=== PATIENT | female | born 1990 | race Caucasian/White ===

== ENCOUNTER 2017-02-03 21:29 | Emergency (ER) | payer MEDICAID, OTHER ==
[~2017-02-03] VITALS: Ht 167.6 cm; Wt 103.0 kg
[~2017-02-03 21:29] MED LIST: ACHD5005 PO; CEPH500C PO; CLIN-62 PO; CLIN300C3 PO; CPR500T PO; HYDR1CAP2 PO; HYDR1TAB PO; IBP600T1 PO; LORA1TAB PO; METR500T PO; MTR250T PO; NITR-65 PO; PHEN200T27 PO; PREN1TAB14 PO; TERC20CR4 VG; TRM50T PO
[2017-02-03] MEDS ORDERED: PHEN15CA67 PO (22:02)
[2017-02-03] MEDS ORDERED: OMEP20CA12 (22:02)
--- NOTE | 2017-02-03 22:13 | ED Lower Extremity ---
General Chief Complaint: Lower Extremity Stated Complaint: R FOOT INJ Nursing Triage Note: PT REPORTS SHE WAS RUNNING TODAY AROUND 1730 AND MOVED HER R FOOT WRONG. PT STATES PAIN IN R FOOT HAS GOTTEN PROGRESSIVELY WORSE THROUGHOUT THE NIGHT. Nursing Sepsis Screen: No Definite Risk Source: patient Exam Limitations: no limitations History of Present Illness Time seen by provider: 22:11 Initial Comments To ER with pain to the top and bottom of her right foot after she was running up a hill at [facility] and stepped on an exposed tree root And stepped on a tree root. Onset: just prior to arrival Severity: moderate Pain/Injury Location: right foot Method of Injury: fell Modifying Factors: Improves With Movement Allergies and Home Medications Allergies Coded Allergies: Penicillins (Unverified Allergy, 08/12/10) Home Medications Omeprazole 20 Mg Capsule., (Reported) Phentermine HCl 15 Mg Capsule, 15 MG PO DAILY, (Reported) Constitutional: see HPI, No chills EENTM: see HPI Respiratory: no symptoms reported Cardiovascular: no symptoms reported Genitourinary: no symptoms reported Musculoskeletal: see HPI Skin: no symptoms reported Psychiatric/Neurological: No Symptoms Reported Past Zogaspk-Zqpkzh-Uyycun Hx Patient Social History Alcohol Use: Occasionally Uses Recreational Drug Use: No Smoking Status: Never a Smoker Recent Foreign Travel: No Contact w/Someone Who Travel: No Recent Infectious Disease Expo: No Physical Abuse: No Sexual Abuse: No Mistreated: No Fear: No Immunizations Up To Date Tetanus Booster (TDap): Unknown Date of Pneumonia Vaccine: Mar 14, 2013 Date of Influenza Vaccine: Mar 14, 2013 Surgeries History of Surgeries: Yes (VAGINAL SX) Respiratory History of Respiratory Disorde: Yes Respiratory Disorders: Asthma Cardiovascular History of Cardiac Disorders: No Neurological History of Neurological Disord: No Reproductive System Hx Reproductive Disorders: Yes Female Reproductive Disorders: Ovarian Cyst, Polycystic Ovarian Dis Genitourinary History of Genitourinary Disor: No Gastrointestinal History of Gastrointestinal Di: No Musculoskeletal History of Musculoskeletal Dis: No Endocrine History of Endocrine Disorders: No HEENT History of HEENT Disorders: No Cancer History of Cancer: No Psychosocial History of Psychiatric Problem: No Behavioral Health Disorders: Anxiety Suicide Risk Score: 0 Integumentary History of Skin or Integumenta: No Blood Transfusions History of Blood Disorders: No Family Medical History Significant Family History: No Pertinent Family Hx Physical Exam Vital Signs Vital Sign - Last 12Hours 02/03/17 21:54 Pulse 81 Resp 20 B/P (MAP) 132/91 Pulse Ox 98 O2 Delivery Room Air Capillary Refill : Less Than 3 Seconds General Appearance: WD/WN, no apparent distress HEENT: PERRL/EOMI, normal ENT inspection Neck: non-tender, full range of motion Respiratory: no respiratory distress, no accessory muscle use Gastrointestinal: normal bowel sounds, non tender, soft Hips: bilateral hip non-tender, bilateral hip normal inspection, bilateral hip normal range of motion Legs: bilateral leg non-tender, bilateral leg normal inspection, bilateral leg normal range of motion Knees: bilateral knee non-tender, bilateral knee normal inspection, bilateral knee normal range of motion Ankles: bilateral ankle non-tender, bilateral ankle normal inspection, bilateral ankle normal range of motion Feet: right foot pain, right foot soft tissue tenderness Neurologic/Psychiatric: alert, normal mood/affect, oriented x 3 Skin: normal color, warm/dry Progress/Results/Core Measures Results/Orders My Orders Orders - MAX CHE APRN Foot, Right, 3 View (02/03/17 22:10) Vital Signs/I&O Vital Sign - Last 12Hours 02/03/17 21:54 Pulse 81 Resp 20 B/P (MAP) 132/91 Pulse Ox 98 O2 Delivery Room Air Blood Pressure Mean: 105 Departure Impression Impression: Primary Impression: Foot sprain Disposition: 01 HOME, SELF-CARE Condition: Stable Departure-Patient Inst. Decision time for Depature: 22:23 Referrals: [facility] (PCP/Family) Primary Care Physician Patient Instructions: Sprain (DC) Add. Discharge Instructions: 1. Return to ER for any concern 2. Use crutches as needed when walking 3. Tylenol and Motrin as needed for pain All discharge instructions reviewed with patient and/or family. Voiced understanding. Work/School Note: Work Release Form Date Seen in the Emergency Department: Feb 03, 2017 Return to Work: Feb 05, 2017 Other Restrictions Listed Below: Crutches when walking MAX CHE APRN Feb 03, 2017 22:13
[2017-02-03 22:55] VITALS: BP 123/75
--- NOTE | 2017-02-04 05:34 | Diagnostic Imaging Report ---
INDICATION: Pain status post injury COMPARISON: None. FINDINGS: 3 views of the right foot demonstrate no acute fracture or dislocation. There are no focal osseous lesions. There is no soft tissue swelling. Joint spaces are well maintained. No radiopaque foreign bodies are seen. IMPRESSION: No acute fractures or dislocations of the right foot. Dictated by: Dictated on workstation # [id number]
== END 2017-02-03 22:54 | disposition home or self-care (01) ==
LOC: EDUNIT# 21:29 → ER 21:32
DX: S93.601A Unspecified sprain of right foot, initial encounter (principal); F41.9 Anxiety disorder, unspecified; J45.909 Unspecified asthma, uncomplicated; Z87.448 Personal history of other diseases of urinary system
CPT/HCPCS: 73630; 99283

== ENCOUNTER 2018-04-26 17:43 | Emergency (ER) | payer MEDICAID ==
[~2018-04-26] VITALS: Ht 162.6 cm; Wt 95.3 kg
[~2018-04-26 17:43] MED LIST changes: +OMEP20CA12; +PHEN15CA PO
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
--- OUTSIDE RECORDS SUMMARY | 2018-04-26 17:51 | XMS REPORT ---
Author Author MICHI CAROLINA Organization [facility] Address [address] [place] [address] Care Team Providers Care House Steward/Stewardess Name Role Phone CAITY MICHI Unavailable PROBLEMS Type Condition ICD9-CM Code [id number] Code Onset Dates Condition Status SNOMED Code Assessment Gastroenteritis K52.9 Jan, Active 56701464 Problem Headache 784.0 Active 83997669 Problem Obesity, unspecified 278.00 Active 311401160 Problem Routine health maintenance Z00.00 Active 415597171 Problem Headache R51 Active 77339720 Problem Exercise-induced asthma J45.990 Active 45994084 Problem Other abnormal glucose 790.29 Active 653837171 Problem Tobacco abuse Z72.0 Active 30668823 Problem Tobacco abuse counseling Z71.6 Active 619917189 ALLERGIES Substance Reaction Event Type Date Status Penicillin V Potassium Unknown Drug Allergy Jan, Active SOCIAL HISTORY No smoking Hx information available PLAN OF CARE VITAL SIGNS Height 65 in 2016-02-06 Weight 231.0 lbs 2016-02-06 Heart Rate 90 bpm 2016-02-06 Respiratory Rate 16 2016-02-06 BMI 38.44 kg/m2 2016-02-06 Blood pressure systolic 126 mmHg 2016-02-06 Blood pressure diastolic 62 mmHg 2016-02-06 MEDICATIONS Medication Instructions Dosage Frequency Start Date End Date Duration Status Zofran ODT 4 MG Orally every 8 hours, PRN 1 tablet on the tongue and allow to dissolve Jan, 03 days Active RESULTS No Results PROCEDURES Procedure Date Ordered Related Diagnosis Body Site Office Visit, Est Pt., Level 3 Feb 06, 2016 IMMUNIZATIONS No Known Immunizations
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
--- OUTSIDE RECORDS SUMMARY | 2018-04-26 17:51 | XMS REPORT ---
Author Author YEVGENIY HDEZ Organization [employer] Address Unknown Phone Unavailable Care Team Providers Care Student Teacher Name Role Phone YEVGENIY HDEZ CP Unavailable Allergies, Adverse Reactions, Alerts Substance Reaction Event Type Penicillin V Potassium Info Not Available Drug Allergy Problems Problem Type Condition Code Onset Dates Condition Status Problem Obesity, unspecified 278.00 Active Problem Other abnormal glucose 790.29 Active Problem Headache 784.0 Active Assessment Asthma with acute exacerbation, unspecified asthma severity J45.901 Active Assessment Allergic rhinitis, unspecified allergic rhinitis trigger, unspecified rhinitis seasonality J30.9 Active Problem Asthma with acute exacerbation, unspecified asthma severity J45.901 Active Problem Routine health maintenance Z00.00 Active Problem Allergic rhinitis, unspecified allergic rhinitis trigger, unspecified rhinitis seasonality J30.9 Active Problem Tobacco abuse counseling Z71.6 Active Problem Exercise-induced asthma J45.990 Active Problem Headache R51 Active Problem Tobacco abuse Z72.0 Active Medications Medication Code System Code Instructions Start Date End Date Status Dosage PredniSONE [facility] [address]-51 20 MG Orally Once a day Mar 03, 2016 Mar 08, 2016 2 tablet Zofran ODT [facility] [address]-56 4 MG Orally every 8 hours, PRN Feb 06, 2016 1 tablet on the tongue and allow to dissolve Zyrtec Allergy [facility] [address]-20 10 MG Orally Once a day Mar 03, 2016 Apr 02, 2016 1 tablet Fluticasone Propionate [facility] [address]-42 50 MCG/ACT Nasally Once a day Mar 03, 2016 1-2 spray in each nostril Procedures Procedure Coding System Code Date Office Visit, Est Pt., Level 3 CPT-4 50654 Mar 03, 2016 Vital Signs Date/Time: Mar 03, 2016 Cardiac Monitoring Heart Rate 88 bpm Weight 230.8 lbs Height 65 in BMI 38.40 Index Blood Pressure Diastolic 72 mmHg Blood Pressure Systolic 126 mmHg Results No Known Results Summary Purpose [employer] Submission
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
--- NOTE | 2018-04-26 18:02 | ED General ---
General Chief Complaint: General Problems/Pain Stated Complaint: CANCER SORES IN MOUTH Nursing Triage Note: ARRIVED TO FT1 WITH COMPLAINTS OF CANKER SORES ON HER LIPS X2 DAYS. Nursing Sepsis Screen: No Definite Risk History of Present Illness Date Seen by Provider: Apr 26, 2018 Time Seen by Provider: 17:59 Allergies and Home Medications Allergies Coded Allergies: Penicillins (Unverified Allergy, 08/12/10) Home Medications No Active Prescriptions or Reported Meds Past Mjrktgs-Fmxwav-Hscagb Hx Patient Social History Recent Foreign Travel: No Contact w/Someone Who Travel: No Recent Infectious Disease Expo: No Recent Hopitalizations: Yes (4 YRS. AGO FOR PNUEMONIA) Immunizations Up To Date Tetanus Booster (TDap): Unknown Date of Pneumonia Vaccine: Mar 14, 2013 Date of Influenza Vaccine: Mar 14, 2013 Past Medical History Surgeries: Yes (VAGINAL SX) Respiratory: Yes Asthma Cardiac: No Neurological: No Reproductive Disorders: Yes Female Reproductive Disorders: Ovarian Cyst, Polycystic Ovarian Dis Genitourinary: No Gastrointestinal: No Musculoskeletal: No Endocrine: No HEENT: No Cancer: No Psychosocial: No Anxiety Integumentary: No Blood Disorders: No Family Medical History No Pertinent Family Hx Physical Exam Vital Signs Vital Signs - First Documented 04/26/18 17:52 Temp 95.8 Pulse 81 Resp 16 B/P (MAP) 117/94 (102) Pulse Ox 98 O2 Delivery Room Air Capillary Refill : Less Than 3 Seconds Height, Weight, BMI Height: 5'4.00" Weight: 210lbs. oz. 95.433830it; BMI Method:Stated Progress/Results/Core Measures Suspected Sepsis Recent Fever Within 48 Hours: No Infection Criteria Present: None New/Unexplained Altered Menta: No Sepsis Screen: No Definite Risk SIRS Temperature:95.8 Pulse: 81 Respiratory Rate: 16 Blood Pressure 117 /94 Mean: 102 Results/Orders Vital Signs/I&O 04/26/18 17:52 Temp 95.8 Pulse 81 Resp 16 B/P (MAP) 117/94 (102) Pulse Ox 98 O2 Delivery Room Air Capillary Refill : Less Than 3 Seconds Blood Pressure Mean: 102 Departure Impression Primary Impression: Canker sore Disposition: 01 HOME, SELF-CARE Condition: Stable/Unchanged Departure-Patient Inst. Decision time for Depature: 18:00 Referrals: [facility] (PCP/Family) Primary Care Physician Patient Instructions: Cold Sores (Oral Herpes) Add. Discharge Instructions: You may use [id number] canker sore relief. I believe the name brand is canker. Use as directed. Tylenol and ibuprofen as needed for pain relief. Follow -up with her primary care provider within 1 week for recheck. Return back to the emergency room for any worsening symptoms or concerns as needed. All discharge instructions reviewed with patient and/or family. Voiced understanding. Scripts No Active Prescriptions or Reported ANURAG Moralez Apr 26, 2018 18:02
[2018-04-26 18:18] VITALS: BP 117/94
== END 2018-04-26 18:18 | disposition home or self-care (01) ==
LOC: EDUNIT# 17:43 → ER 17:44
DX: K12.0 Recurrent oral aphthae (principal); J45.909 Unspecified asthma, uncomplicated; F41.9 Anxiety disorder, unspecified; Z87.448 Personal history of other diseases of urinary system; Z88.0 Allergy status to penicillin
CPT/HCPCS: 99281

== ENCOUNTER 2018-04-28 05:25 | Emergency (ER) | payer MEDICAID ==
[~2018-04-28] VITALS: Ht 162.6 cm; Wt 95.3 kg
--- OUTSIDE RECORDS SUMMARY | 2018-04-28 05:38 | XMS REPORT | Continuity of Care Document ---
Author Author Formerly [facility] Address Unknown Phone Unavailable Allergies Active Description Code Type Severity Reaction Onset Reported/Identified Relationship to Patient Clinical Status Yes Penicillins Drug Allergy 03/14/2009 Yes Penicillins Drug Allergy N/A N/A 03/14/2009 Yes Penicillins [id number] Drug Allergy Unknown N/A 08/12/2010 Medications There [...] A 256.4 POLYCYSTIC OVARIAN SYNDROME 05/24/2009 FRANCESCO ORSENBAUM APRNINA R 256.4 POLYCYSTIC OVARIAN SYNDROME 05/24/2009 FRANCESCO ROSENBAUM APRNINA R 256.4 POLYCYSTIC OVARIAN SYNDROME 02/06/2010 626.0 amenorrhea 02/06/2010 MITZI MEZA DO 626.0 amenorrhea 02/06/2010 626.0 amenorrhea 02/06/2010 NEHA STOLL APRN A 626.0 amenorrhea 02/06/2010 NEHA STOLL APRN A 626.0 amenorrhea 02/06/2010 ROBI SOCIAL MEDIA ANALYST, JODY R 626.0 amenorrhea 02/06/2010 ROBI SOCIAL MEDIA ANALYST, JODY R 626.0 amenorrhea 05/11/2010 616.10 VAGINITIS VULVOVAGINITIS UNSPECIFIED 05/11/2010 788.1 DYSURIA 05/11/2010 V69.2 HIGH-RISK SEXUAL BEHAVIOR 05/11/2010 V72.31 COSTUMED CHARACTER EXAM, ROUTINE 05/11/2010 V74.5 STD SCREEN 05/11/2010 MEZA DO MITZI K 616.10 VAGINITIS VULVOVAGINITIS UNSPECIFIED 05/11/2010 MEZA DO, MITZI K 788.1 DYSURIA 05/11/2010 MEZA DO, MITZI K V69.2 HIGH-RISK SEXUAL BEHAVIOR 05/11/2010 MEZA DO, MITZI K V72.31 COSTUMED CHARACTER EXAM, ROUTINE 05/11/2010 MEZA DO, MITZI K V74.5 STD SCREEN 05/11/2010 616.10 VAGINITIS VULVOVAGINITIS UNSPECIFIED 05/11/2010 788.1 DYSURIA 05/11/2010 V69.2 HIGH-RISK SEXUAL BEHAVIOR 05/11/2010 V72.31 COSTUMED CHARACTER EXAM, ROUTINE 05/11/2010 V74.5 STD SCREEN 05/11/2010 DODIE SOCIAL MEDIA ANALYST, NEHA A 616.10 VAGINITIS VULVOVAGINITIS UNSPECIFIED 05/11/2010 DODIE SOCIAL MEDIA ANALYST, NEHA A 788.1 DYSURIA 05/11/2010 DODIE SOCIAL MEDIA ANALYST, NEHA A V69.2 HIGH-RISK SEXUAL BEHAVIOR 05/11/2010 DODIE SOCIAL MEDIA ANALYST, NEHA A V72.31 COSTUMED CHARACTER EXAM, ROUTINE 05/11/2010 DODIE SOCIAL MEDIA ANALYST, NEHA A V74.5 STD SCREEN 05/11/2010 DODIE SOCIAL MEDIA ANALYST, NEHA A 616.10 VAGINITIS VULVOVAGINITIS UNSPECIFIED 05/11/2010 DODIE SOCIAL MEDIA ANALYST, NEHA A 788.1 DYSURIA 05/11/2010 DODIE SOCIAL MEDIA ANALYST, NEHA A V69.2 HIGH-RISK SEXUAL BEHAVIOR 05/11/2010 DODIE SOCIAL MEDIA ANALYST, NEHA A V72.31 COSTUMED CHARACTER EXAM, ROUTINE 05/11/2010 DODIE SOCIAL MEDIA ANALYST, NEHA A V74.5 STD SCREEN 05/11/2010 ROBI AGOSTON, JODY R 616.10 VAGINITIS VULVOVAGINITIS UNSPECIFIED 05/11/2010 ROBI STEWART JODY R 788.1 DYSURIA 05/11/2010 ROBI AGOSTON JODY R V69.2 HIGH-RISK SEXUAL BEHAVIOR 05/11/2010 ROBI AGOSTON, JODY R V72.31 COSTUMED CHARACTER EXAM, ROUTINE 05/11/2010 ROBI AGOSTON JODY R V74.5 STD SCREEN 05/11/2010 ROBI AGOSTON JODY R 616.10 VAGINITIS VULVOVAGINITIS UNSPECIFIED 05/11/2010 ROBI STEWART JODY R 788.1 DYSURIA 05/11/2010 ROBI STEWART, JODY R V69.2 HIGH-RISK SEXUAL BEHAVIOR 05/11/2010 ROBI STEWART JODY R V72.31 COSTUMED CHARACTER EXAM, ROUTINE 05/11/2010 FRANCESCO ROSENBAUM APRNINA R [...] CERVICAL CANCER SCREENING (PAP SMEAR) 02/19/2011 ROBI SOCIAL MEDIA ANALYST, JODY R V76.2 CERVICAL CANCER SCREENING (PAP [...] A V72.41 TEST NEGATIVE RESULT 06/02/2012 JODY ROSENBAUM APRN R V72.41 TEST NEGATIVE RESULT 06/02/2012 [...] INOCULATI 03/14/2013 KARYN SNYDER DO Ot V06.1 SSBIABPTIC-[id number], COMBINED [ 03/14/2013 KARYN SNYDER DO Ot V06.6 PROPHYLACTIC VACC AGNST STREPTOCOCCUS PN 03/14/2013 KARYN SNYDER DO Ot V27.0 DELIVER-SINGLE LIVEBORN 03/15/2013 MAX CHE APRN Ot 784.0 HEADACHE 06/05/2013 DORIE NOLAN MD Ot 521.00 UNSPEC DENTAL CARIES 06/05/2013 DORIE NOLAN MD Ot 525.9 DENTAL DISORDER NOS 01/17/2014 DODIE SOCIAL MEDIA ANALYST, NEHA A V25.9 CONTRACEPTION MANAGEMENT 01/17/2014 ROBI STEWART, JODY R V25.9 CONTRACEPTION MANAGEMENT 01/17/2014 ROBI STEWART, JODY R V25.9 CONTRACEPTION MANAGEMENT 06/23/2014 ROBI SOCIAL MEDIA ANALYST, JODY R 278.00 OBESITY 06/23/2014 ROBI AGOSTON, JODY R 784.0 HEADACHE 06/23/2014 ROBI AGOSTON, JODY R 278.00 OBESITY 06/23/2014 ROBI AGOSTON, JODY R 784.0 HEADACHE 07/07/2014 ROBI SOCIAL MEDIA ANALYST, JODY R 786.2 COUGH 07/07/2014 ROBI AGOSTON, JODY R 790.29 ABNORMAL GLUCOSE 07/07/2014 ROBI AGOSTON, JODY R V70.0 ROUTINE GENERAL MEDICAL EXAMINATION AT A HEALTH CARE FACILITY 07/07/2014 ROBI SOCIAL MEDIA ANALYST, JODY R 786.2 COUGH 07/07/2014 ROBI AGOSTON, [...] Procedures Code Description [place] [address] URINE TEST (IN- HOUSE) 06/02/2012 58447 URINE TEST (IN- HOUSE) 07/24/2012 96.49 OTHER INSTILLATION 03/11/2013 73.6 EPISIOTOMY 03/12/2013 08086 THERAPUTIC INJ SQ/IM 01/17/2014 J1050 DEPO PROVERA 01/17/2014 30310 TEST, URINE (IN- HOUSE) 01/17/2014 96549 ROUTINE VENIPUNCTURE 07/08/2014 52713 CBC 07/08/2014 9960831 GFR CALC (RESULT ONLY) 07/08/2014 18971 CMP 07/08/2014 14370 LIPID PANEL 07/08/2014 05765 TSH 07/08/2014 79022 INSULIN LEVEL 07/08/2014 16074 MYCOPLASMA ANTIBODY 07/11/2014 Results Test Result Range [...] 10:36 Hemoglobin A1c 5.2 % 4.8-5.6 Thyroid [place] Profile - 10/18/16 10:36 TSH 1.090 uIU/mL [...] Status Pt. Type Provider Facility Loc./Unit Complaint [id number] 07/08/2014 13:25:00 07/08/2014 23:59:59 CLS Outpatient JODY ROSENBAUM APRN [id number] 07/07/2014 13:54:00 07/07/2014 23:59:59 CLS Outpatient JODY ROSENBAUM APRN [id number] 01/17/2014 14:57:00 01/17/2014 23:59:59 CLS Outpatient NEHA STOLL APRN [id number] 08/16/2013 16:00:00 08/16/2013 23:59:59 CLS Outpatient NEHA STOLL APRN [id number] 07/24/2012 09:21:00 07/24/2012 23:59:59 CLS Outpatient [id number] 06/08/2012 09:23:00 06/08/2012 23:59:59 CLS Outpatient MITZI MEZA DO [id number] 06/02/2012 09:31:00 06/02/2012 23:59:59 CLS Outpatient [id number] 10/21/2016 10:06:00 Document Registration [id number] 10/22/2016 15:09:00 Document Registration [id number] 02/03/2017 21:32:00 02/03/2017 22:54:00 DIS Emergency MAX CHE APRN Via [facility] ER R FOOT INJ [id number] 09/22/2014 18:39:00 09/22/2014 20:54:00 DIS Emergency MICHELLE SMITH DO Via [facility] ER EAR PAIN [id number] 06/05/2013 02:38:00 06/05/2013 03:16:00 DIS Emergency DORIE NOLAN MD [facility] ER DENTAL PAIN [id number] 03/15/2013 17:05:00 03/15/2013 18:42:00 DIS Emergency MAX CHE SOCIAL MEDIA ANALYST Via [facility] ER HEADACHE [id number] 03/11/2013 19:50:00 03/14/2013 14:30:00 DIS Inpatient KARYN SNYDER DO Via [facility] INDUCTION [id number] 03/08/2013 05:48:00 03/08/2013 06:47:00 DIS Outpatient KARYN SNYDER DO Via [facility] ABD PAIN [id number] 02/25/2013 00:30:00 02/25/2013 03:45:00 DIS Outpatient KARYN SNYDER DO [facility] CONTRACTIONS [id number] 02/08/2013 22:53:00 02/09/2013 00:35:00 DIS Outpatient KARYN SNYDER DO Via [facility] CRAMPING [id number] 01/06/2013 04:48:00 01/06/2013 06:30:00 DIS Outpatient KARYN SNYDER DO Via [facility] ABD PAIN [id number] 11/29/2012 01:32:00 11/29/2012 02:10:00 DIS Outpatient MATEUS BASS MD Via [facility] SOA, ABD PAIN [id number] 10/31/2012 20:53:00 10/31/2012 21:54:00 DIS Emergency DORIE NOLAN MD Via [facility] ER TOOTHACHE [id number] 10/26/2012 00:05:00 10/26/2012 00:41:00 DIS Emergency NURY KENNEDY, MARIN Nick [facility] ER DENTAL PAIN [id number] 08/04/2012 00:46:00 Document Registration [id number] 10/16/2010 08:27:00 Document Registration [id number] 08/27/2010 21:52:00 Document Registration [id number] 08/16/2010 18:46:00 Document Registration [id number] 08/14/2010 09:57:00 Document Registration [id number] 08/12/2010 15:14:00 Document Registration [id number] 10/21/2016 08:05:00 Document Registration [id number] 01/18/2017 09:09:00 Document Registration [id number] 03/20/2018 15:00:00 03/20/2018 23:59:59 [facility] Outpatient TESFAYE [facility] [id number] 12/09/2017 11:20:00 Document Registration [id number] 10/30/2017 11:00:00 Document Registration [id number] 06/12/2017 16:00:00 Document Registration [id number] 10/18/2016 10:00:00 Document Registration
[2018-04-28] MEDS ORDERED: CLIN300C11 PO (06:28)
[2018-04-28] MEDS ORDERED: ACYC400T PO (06:28)
--- NOTE | 2018-04-28 06:28 | ED EENT ---
History of Present Illness General Chief Complaint: Oral/Throat Problems Stated Complaint: LIPS SWOLLEN FOR 4 DAYS,SORE THROAT,NAUSEA,ARNETT Source: patient, old records Exam Limitations: no limitations History of Present Illness Date Seen by Provider: Apr 28, 2018 Time Seen by Provider: 06:08 Initial Comments This 27-year-old woman presents to the emergency room for a repeat visit regarding lip swelling and canker sores. She has been using oeqt-hfy-btoucxm products such as Abreva without significant relief. In fact, the swelling has worsened. Pain seemed to peak yesterday. She has multiple aphthous ulcerations on the mucosal surface of the lower lip. The lower lip is swollen. There is honey crusting on the exterior surface of the lip. Patient has also had some nausea. She is afebrile. Allergies and Home Medications Allergies Coded Allergies: Penicillins (Unverified Allergy, 08/12/10) Home Medications Acyclovir 400 Mg Tablet, 400 MG PO TID Prescribed by: MARIN LIM on 04/28/18627 Clindamycin HCl 300 Mg Capsule, 300 MG PO QID Prescribed by: MARIN LIM on 04/28/18627 Patient Home Medication List Home Medication List Reviewed: Yes Review of Systems Review of Systems Constitutional: no symptoms reported Eyes: No Symptoms Reported Ears: No Symptoms Reported Nose: no symptoms reported Mouth: see HPI Throat: no symptoms reported Respiratory: no symptoms reported Cardiovascular: no symptoms reported : No Musculoskeletal: no symptoms reported Skin: see HPI Neurological: No Symptoms Reported Immunological/Allergic: no symptoms reported Past Pvadxzt-Nvpolk-[place]ucuk Hx Past Med/Social Hx: Reviewed Nursing Past Med/Soc Hx Patient Social History Recent Foreign Travel: No Contact w/Someone Who Travel: No Recent Hopitalizations: Yes (4 YRS. AGO FOR PNUEMONIA) Immunizations Up To Date Tetanus Booster (TDap): Unknown Date of Pneumonia Vaccine: Mar 14, 2013 Date of Influenza Vaccine: Mar 14, 2013 Past Medical History Surgeries: Yes (VAGINAL SX) Respiratory: Yes Asthma Cardiac: No Neurological: No Reproductive Disorders: Yes Female Reproductive Disorders: Ovarian Cyst, Polycystic Ovarian Dis Genitourinary: No Gastrointestinal: No Musculoskeletal: No Endocrine: No HEENT: No Cancer: No Psychosocial: No Anxiety Integumentary: No Blood Disorders: No Family Medical History No Pertinent Family Hx Physical Exam Vital Signs Vital Signs - First Documented 04/28/18 04/28/18 06:08 07:04 Temp 97.8 Pulse 97 Resp 17 B/P (MAP) 130/88 (102) Pulse Ox 100 Height, Weight, BMI Height: 5'4.00" Weight: 210lbs. oz. 95.745193fq; BMI Method:Stated General Appearance: WD/WN, no apparent distress Eyes: bilateral eye normal inspection Ears: bilateral ear auricle normal, bilateral ear canal normal, bilateral ear TM normal (scarring) Nose: normal inspection Mouth/Throat: other (swelling of the lower lip with numerous aphthous ulcers on the mucosal surface. Honey crusting on the exterior surface.) Neck: normal inspection Cardiovascular: regular rate, rhythm, no edema, no murmur Respiratory: lungs clear, normal breath sounds, no respiratory distress Neurologic/Psychiatric: rug designer II-XII nml as tested, no motor/sensory deficits, alert, normal mood/affect, oriented x 3 Skin: warm/dry, other (see above) Progress/Results/Core Measures Results/Orders My Orders Orders - MARIN ARRINGTON MD Ondansetron Oral Dissolve Tab (Zofran (04/28/18 06:30) Clindamycin Capsule (Cleocin Capsule) (04/28/18 06:30) Acyclovir Capsule/Tablet (Zovirax Caps (04/28/18 06:30) Medications Given in ED Current Medications Medications Dose Ordered Sig/Elmo Route Start Time Stop Time Status Last Admin Dose Admin Acyclovir 400 mg ONCE ONCE PO 04/28/18 06:30 04/28/18 06:32 DC 04/28/18 06:45 400 MG Clindamycin HCl 300 mg ONCE ONCE PO 04/28/18 06:30 04/28/18 06:32 DC 04/28/18 06:45 300 MG Ondansetron HCl 4 mg ONCE ONCE PO 04/28/18 06:30 04/28/18 06:32 DC 04/28/18 06:45 4 MG Vital Signs/I&O 04/28/18 04/28/18 06:08 07:04 Temp 97.8 97.8 Pulse 97 97 Resp 17 17 B/P (MAP) 130/88 (102) 130/88 (102) Pulse Ox 100 Progress Progress Note : Progress Note Patient is 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 The honey crusting may be from a secondary impetigo. She will be treated with acyclovir and Keflex. The first doses of the medications were given in the ER as pharmacies were not yet open. Departure Impression Primary Impression: Herpes stomatitis Additional Impression: Impetigo Disposition: HOME, SELF-CARE Condition: Stable Departure-Patient Inst. Decision time for Depature: 06:23 Referrals: [facility]/ (PCP/Family) Primary Care Physician Patient Instructions: Cold Sores (Oral Herpes) Add. Discharge Instructions: Use your medications as prescribed. Your symptoms should gradually improve over the next several days. Contact your primary care provider with any other problems or concerns. You may return to emergency room if you have significant worsening in your condition despite treatment. All discharge instructions reviewed with patient and/or family. Voiced understanding. Scripts Clindamycin HCl (Clindamycin HCl) 300 Mg Capsule 300 MG PO QID, #20 CAP Prov: MARIN ARRINGTON MD 04/28/18 Acyclovir (Acyclovir) 400 Mg Tablet 400 MG PO TID, #15 TAB 1 Refill Prov: MARIN ARRINGTON MD 04/28/18 Copy Copies To 1: MITZI MEZA JOSHUA T MD Apr 28, 2018 06:28
[2018-04-28] MEDS ORDERED: ACYCLOVIR 400 MG TABLET (ZOVIRAX) PO ONE (06:30)
[2018-04-28] MEDS ORDERED: ONDANSETRON 4 MG (ZOFRAN) ORAL DISSOLVE TAB PO ONE (06:30)
[2018-04-28] MEDS ORDERED: CLINDAMYCIN 150 MG (CLEOCIN) CAP PO ONE (06:30)
[2018-04-28 07:04] VITALS: BP 130/88
== END 2018-04-28 07:06 | disposition home or self-care (01) ==
LOC: EDUNIT# 05:25 → ER 05:27
DX: B00.2 Herpesviral gingivostomatitis and pharyngotonsillitis (principal); L01.00 Impetigo, unspecified; J45.909 Unspecified asthma, uncomplicated; F41.9 Anxiety disorder, unspecified; Z87.01 Personal history of pneumonia (recurrent); Z87.448 Personal history of other diseases of urinary system; Z88.0 Allergy status to penicillin
CPT/HCPCS: 99283

== ENCOUNTER 2022-06-03 15:29 | Emergency (ER) | payer MEDICAID ==
[~2022-06-03] VITALS: Ht 162 cm; Wt 103.4 kg
[~2022-06-03 15:29] MED LIST changes: +ACYC400T21 PO; +CLIN-144 PO; -OMEP20CA12; +OMEP20CA18; -PHEN15CA PO; +PHEN15CA6 PO
[2022-06-03 16:30] LABS: BASOPHILS # (AUTO) 0.1 10^3/uL (0.0-0.1); BASOPHILS % (AUTO) 1 % (0-10); EOSINOPHILS # (AUTO) 0.1 10^3/uL (0.0-0.3); EOSINOPHILS % (AUTO) 1 % (0-10); HEMATOCRIT 42 % (35-52); HEMOGLOBIN 14.3 g/dL (11.5-16.0); LYMPHOCYTES # (AUTO) 2.6 10^3/uL (1.0-4.0); LYMPHOCYTES % (AUTO) 31 % (12-44); MEAN CORPUSCULAR HEMOGLOBIN 29 pg (25-34); MEAN CORPUSCULAR HGB CONC 34 g/dL (32-36); MEAN CORPUSCULAR VOLUME 86 fL (80-99); MEAN PLATELET VOLUME 10.5 fL (9.0-12.2); MONOCYTES # (AUTO) 0.6 10^3/uL (0.0-1.0); MONOCYTES % (AUTO) 7 % (0-12); NEUTROPHILS % (AUTO) 59 % (42-75); PLATELET COUNT 255 10^3/uL (130-400); WHITE BLOOD COUNT 8.4 10^3/uL (4.3-11.0)
[2022-06-03 17:00] LABS: ALBUMIN 4.3 GM/DL (3.2-4.5); BILIRUBIN,TOTAL 0.5 MG/DL (0.1-1.0); CALCIUM 9.7 MG/DL (8.5-10.1); CREATININE SERUM 0.82 MG/DL (0.60-1.30); POTASSIUM 4.1 MMOL/L (3.6-5.0); TOTAL PROTEIN 7.6 GM/DL (6.4-8.2)
[2022-06-03] MEDS ORDERED: KETOROLAC 15 MG/ML VIAL IM ONE (17:15)
[2022-06-03] MEDS ORDERED: KETO10TA PO (17:20)
--- NOTE | 2022-06-03 17:20 | ED General ---
General Chief Complaint: Chest Wall Stated Complaint: LT ARM PAIN,LT SIDE RIBCAGE PAIN Nursing Triage Note: PT AMBULATORY TO ER. PT C/O L RIB PAIN AND L SHOULDER/ARM PAIN ONSET LAST NIGHT, DENIES INJURY. REPORTS PAIN IN RIBS IS WORSE WHEN LAYING FLAT OR TAKING A DEEP BREATH. PT DENIES ANY PRECIPITATING FACTORS. PT DENIES NUMBNESS TINGING. Source of Information: Patient Exam Limitations: No Limitations History of Present Illness Date Seen by Provider: Jun 03, 2022 Time Seen by Provider: 16:00 Initial Comments History obtained from patient. Patient is a 30-year-old female who presents to the emergency department with left rib and left shoulder/arm pain that began last night. Patient denies any injury. She states the pain is mostly in her left arm although she does have some left lateral rib pain when she is lying flat or taking a deep breath. Denies any numbness, tingling, weakness in the left arm. Denies any history of heart or lung problems. Denies any presyncopal symptoms. Denies any diaphoresis at rest. Denies any exertional worsening of the pain. Denies any neck pain. Allergies and Home Medications Allergies Coded Allergies: Penicillins (Unverified Allergy, Unknown, 06/03/22) Patient Home Medication List Home Medication List Reviewed: Yes Acyclovir (Acyclovir) 400 Mg Tablet, 400 MG PO TID Prescribed by: MARIN LIM on 04/28/18627 Clindamycin HCl (Clindamycin HCl) 300 Mg Capsule, 300 MG PO QID Prescribed by: MARIN LIM on 04/28/18627 Ketorolac Tromethamine (Ketorolac Tromethamine) 10 Mg Tablet, 10 MG PO Q6H PRN for PAIN-BREAKTHROUGH Prescribed by: Rita Foster on 06/03/22 1720 Review of Systems Review of Systems Constitutional: no symptoms reported EENTM: no symptoms reported Respiratory: no symptoms reported Cardiovascular: see HPI, chest pain Gastrointestinal: no symptoms reported Genitourinary: no symptoms reported Musculoskeletal: see HPI Skin: no symptoms reported Psychiatric/Neurological: No Symptoms Reported Past Xemktey-Juojhc-Fugdlh Hx Patient Social History Tobacco Use?: No Use of E-Cig and/or Vaping dev: No Substance use?: No Alcohol Use?: No Pt feels they are or have been: No Immunizations Up To Date Tetanus Booster (TDap): Unknown First/Initial COVID19 Vaccinat: DENIES Past Medical History Surgeries: Yes (VAGINAL SX) Respiratory: Yes Asthma Cardiac: No Neurological: No Last Menstrual Period: May 09, 2022 Reproductive Disorders: Yes Female Reproductive Disorders: Ovarian Cyst, Polycystic Ovarian Dis Genitourinary: No Gastrointestinal: No Musculoskeletal: No Endocrine: No HEENT: No Cancer: No Psychosocial: No Anxiety Integumentary: No Blood Disorders: No Family Medical History No Pertinent Family Hx Physical Exam Vital Signs Vital Signs - First Documented 06/03/22 15:38 Temp 36.8 Pulse 84 Resp 18 B/P (MAP) 129/94 (106) Pulse Ox 97 O2 Delivery Room Air Capillary Refill : Height, Weight, BMI Height: 5'4.00" Weight: 210lbs. oz. 95.416361ru; 39.00 BMI Method:Stated General Appearance: No Apparent Distress, WD/WN HEENT: PERRL/EOMI, TMs Normal, Normal ENT Inspection, Pharynx Normal Neck: Full Range of Motion, Normal Inspection, Non Tender, Supple Respiratory: Chest Non Tender, Lungs Clear, Normal Breath Sounds, No Accessory Muscle Use, No Respiratory Distress Cardiovascular: Regular Rate, Rhythm, Normal Peripheral Pulses Gastrointestinal: Soft Neurologic/Psychiatric: Alert, Oriented x3, No Motor/Sensory Deficits, Normal Mood/Affect Progress/Results/Core Measures Suspected Sepsis SIRS Temperature: Pulse: 84 Respiratory Rate: 18 Laboratory Tests 06/03/22 16:18: White Blood Count 8.4 Blood Pressure 129 /94 Mean: 106 Laboratory Tests 06/03/22 16:18: Creatinine 0.82, Platelet Count 255, Total Bilirubin 0.5 Results/Orders Lab Results Laboratory Tests Test 06/03/22 16:18 Range/Units White Blood Count 8.4 4.3-11.0 10^3/uL Red Blood Count 4.90 3.80-5.11 10^6/uL Hemoglobin 14.3 11.5-16.0 g/dL Hematocrit 42 35-52 % Mean Corpuscular Volume 86 80-99 fL Mean Corpuscular Hemoglobin 29 25-34 pg Mean Corpuscular Hemoglobin Concent 34 32-36 g/dL Red Cell Distribution Width 11.9 10.0-14.5 % Platelet Count 255 130-400 10^3/uL Mean Platelet Volume 10.5 9.0-12.2 fL Immature Granulocyte % (Auto) 0 % Neutrophils (%) (Auto) 59 42-75 % Lymphocytes (%) (Auto) 31 12-44 % Monocytes (%) (Auto) 7 0-12 % Eosinophils (%) (Auto) 1 0-10 % Basophils (%) (Auto) 1 0-10 % Neutrophils # (Auto) 5.0 1.8-7.8 10^3/uL Lymphocytes # (Auto) 2.6 1.0-4.0 10^3/uL Monocytes # (Auto) 0.6 0.0-1.0 10^3/uL Eosinophils # (Auto) 0.1 0.0-0.3 10^3/uL Basophils # (Auto) 0.1 0.0-0.1 10^3/uL Immature Granulocyte # (Auto) 0.0 0.0-0.1 10^3/uL Sodium Level 137 135-145 MMOL/L Potassium Level 4.1 3.6-5.0 MMOL/L Chloride Level 106 98-107 MMOL/L Carbon Dioxide Level 23 21-32 MMOL/L Anion Gap 8 5-14 MMOL/L Blood Urea Nitrogen 8 7-18 MG/DL Creatinine 0.82 0.60-1.30 MG/DL Estimat Glomerular Filtration Rate 97 BUN/Creatinine Ratio 10 Glucose Level 98 70-105 MG/DL Calcium Level 9.7 8.5-10.1 MG/DL Corrected Calcium 9.5 8.5-10.1 MG/DL Total Bilirubin 0.5 0.1-1.0 MG/DL Aspartate Amino Transf (AST/SGOT) 25 5-34 U/L Alanine Aminotransferase (ALT/SGPT) 27 0-55 U/L Alkaline Phosphatase 74 40-136 U/L Total Protein 7.6 6.4-8.2 GM/DL Albumin 4.3 3.2-4.5 GM/DL Serum Test, Qualitative NEGATIVE NEGATIVE My Orders Orders - RITA FOSTER FRAMEWORK DEVELOPER Cbc With Automated Diff (06/03/22 16:06) Comprehensive Metabolic Panel (06/03/22 16:06) Hcg,Qualitative Serum (06/03/22 16:18) Ketorolac Injection (Toradol Injection) (06/03/22 17:15) Medications Given in ED Vital Signs/I&O 06/03/22 06/03/22 15:38 17:28 Temp 36.8 Pulse 84 Resp 18 B/P (MAP) 129/94 (106) 137/82 Pulse Ox 97 O2 Delivery Room Air Capillary Refill : Blood Pressure Mean: 106 Progress Note : Progress Note Patient is nontoxic and well-hydrated on exam. Vital signs are reassuring. No hypoxia noted. No significant tenderness to palpation to the left arm or left lateral chest wall. Patient has full range of motion in the left arm as well as symmetrical strength in both upper extremities. Orders placed for CBC, CMP, qualitative hCG, and intramuscular ketorolac. CBC largely unremarkable other than slightly low platelet count. CMP largely unremarkable. Qualitative hCG is negative. I have low suspicion that the pain is related to ACS. Discussed supportive care and anticipatory guidance. Follow-up with PCP. Return precautions for symptomology discussed. Patient verbalized understanding. Departure Impression Primary Impression: Left arm pain Disposition: HOME, SELF-CARE Condition: Stable Departure-Patient Inst. Decision time for Depature: 17:15 Referrals: [facility] [place] (PCP/Family) Primary Care Physician Patient Instructions: Acute Pain, Adult Add. Discharge Instructions: Follow-up with your regular doctor in 3-4 days if symptoms are not improving. All discharge instructions reviewed with patient and/or family. Voiced understanding. Scripts Ketorolac Tromethamine (Ketorolac Tromethamine) 10 Mg Tablet 10 MG PO Q6H PRN for PAIN-BREAKTHROUGH for 5 Days, #20 TAB 0 Refills Prov: RITA FOSTER APRN 06/03/22 RITA FOSTER APRN Jun 03, 2022 17:20
[2022-06-03 17:28] VITALS: BP 137/82
== END 2022-06-03 17:26 | disposition home or self-care (01) ==
LOC: EDUNIT# 15:29 → ER 15:33
DX: M79.602 Pain in left arm (principal); Z28.310 Unvaccinated for COVID-19
CPT/HCPCS: 36415; 80053; 84703; 85025